=== PATIENT | male | born 1940 | race Caucasian/White ===

== ENCOUNTER 2022-09-23 10:53 | Day surgery (SDC) | payer OTHER ==
[~2022-09-23] VITALS: Ht 172.7 cm; Wt 133.6 kg
[2022-09-23] MEDS ORDERED: TIOT18CA3 INH (11:53)
[2022-09-23] MEDS ORDERED: ASPI-611 PO (11:53)
[2022-09-23] MEDS ORDERED: LOP12.5T PO (11:53)
[2022-09-23] MEDS ORDERED: SIMV-343 PO (11:53)
[2022-09-23] MEDS ORDERED: HYDR12.55 PO (11:53)
[2022-09-23] MEDS ORDERED: CHOL100046 PO (11:53)
[2022-09-23] MEDS ORDERED: TERA1CAP4 PO (11:53)
[2022-09-23] MEDS ORDERED: CYAN-51 PO (11:53)
[2022-09-23] MEDS ORDERED: ALBU6.7H14 INH (11:53)
[2022-09-23] MEDS ORDERED: LISI5TAB22 PO (11:53)
[2022-09-23] MEDS ORDERED: FINA5TAB11 PO (11:53)
[2022-09-23 12:23] VITALS: BP 147/77
[2022-09-23] MEDS ORDERED: LIDOcaine 1% 30ml preserv. free vial ONE (13:25)
[2022-09-23 13:30] VITALS: BP 147/77
[2022-09-23 13:35] VITALS: BP 145/86
== END 2022-09-23 13:40 | disposition home or self-care (01) ==
LOC: SSTAY O 10:53
PROVIDERS: ATTEND Radiology Vascular & Interventional Radiology
DX: K13.79 Other lesions of oral mucosa (principal)
CPT/HCPCS: 10005; J3490